=== PATIENT | female | born 1980 | race Caucasian/White ===

== ENCOUNTER → 2023-09-27 | Outpatient (CLI) | payer BC ==
[~2023-09-27] MED LIST: LEVEMIR FLEX100 U/ML SQ; MOTRIN 600600 MG/TAB PO; NATURAL IRON65 MG PO; PERCOCET 325 MG1 TA2 PO; PRENATAL1 TA7 PO
== END ==
LOC: COL.LAB 09:18
DX: R06.00 Dyspnea, unspecified (principal)

== ENCOUNTER → 2023-09-27 | Outpatient (CLI) | payer BC | LOC: COL.RAD 12:04 | DX: I26.99 Other pulmonary embolism without acute cor pulmonale (principal); R79.1 Abnormal coagulation profile | CPT/HCPCS: Q9967 ==